=== PATIENT | male | born 1985 | race Caucasian/White ===

== ENCOUNTER 2024-12-09 01:20 | Emergency (ER) | payer SELFPAY ==
[2024-12-09 01:21] VITALS: BP 150/100; PULSE 78; RESP 18; TEMP 36.6; O2SAT 98; BMI 27.6
--- NOTE | 2024-12-09 02:01 | EX.ED.VIS.PS ---
HPI HPI - Psych History of Present Illness Chief Complaint: Suicidal Narrative Narrative: Patient is a 39-year-old male presenting to the emergency department for suicidal ideation. Patient states he is not on any current psychiatric meds. States he was drinking alcohol tonight and reports that he does not know how much he drank. States that he has had on and off thoughts of harming himself over the past years. States that tonight the thoughts got worse. He does have access to a gun at home and was thinking about using it. He does not have a specific plan to kill himself. He denies any other drugs tonight. Denies history of suicide attempts. Denies physical complaints. Denies homicidal ideation or plan, delusions or hallucinations. [facility]SH [facility] Medical History Suicidal ideation Depression Home Medications ?Medication ?Instructions ?Recorded ?Last Taken ?Type NK 12/09/24 Unknown History Allergy/AdvReac Type Severity Reaction Status Date / Time No Known Allergies Allergy Verified 12/09/24 01:20 Social History Smoking Status: Current every day smoker tobacco type: cigarettes ROS ROS ED ROS Narrative See HPI EXAM Physical Exam Narrative Exam Narrative: Vital signs: Reviewed General: Alert and oriented x 3. No acute distress HEENT: Head is normocephalic and atraumatic, sinuses nontender, pupils equal round and reactive. Nares are patent. Oropharynx and throat exams normal. Neck: Supple without lymphadenopathy nontender Cardiovascular: Regular rate and rhythm, no murmurs. No rubs or gallops. Normal S1 and S2 Respiratory: Clear to auscultation bilaterally. No wheezes, rales, rhonchi Abdominal: Soft and nontender. Normal bowel sounds. No guarding or rebound. Nonsurgical abdomen Extremities: No tenderness. No bruising. Normal range of motion. Normal sensation. Skin: No rash or redness. Neurological: Cranial nerves II through XII are grossly intact. Normal strength and sensation. Normal cerebellar function The rest of the physical exam is unremarkable Const Vital Signs: 12/09/24 01:21 Temperature 98 F Temperature Source Oral Pulse Rate 78 Respiratory Rate 18 Blood Pressure 150/100 H Blood Pressure Mean 116 Pulse Ox 98 Oxygen Delivery Method Room Air Psych mental status grossly normal, cooperative, speech normal, denies hallucinations and denies homicidal ideation; Negative for denies suicidal ideation Attitude: calm, No withdrawn, No uncooperative, No agitated and No aggressive Activity / Motor Behavior: appropriate eye contact Speech: normal speech Mood & Affect: flat affect Thought Process: normal thought process Thought Content: suicidality, No homicidality, No phobia(s), No delusion(s) and No hallucination(s) Attention / Concentration: attention grossly intact and concentration grossly intact Memory / Cognition: memory grossly intact MDM MDM MDM Narrative Medical decision making narrative: Patient is a 39-year-old male presenting to the emergency department for suicidal ideation. Patient was seen and examined. Vitals are stable. Patient resting bed comfortably no acute distress. Patient is suicidal and has access to firearms at home. Exacerbated by his alcohol intoxication. Will reevaluate once more clinically sober. Medical clearance labs ordered. Will consult crisis. Crisis evaluated patient. He is deny SI now. Clinically sober. He lives at home with his father. Sister crisis consulted father who will have the firearms removed from the home. Patient was safety plan. Set up with therapist outpatient. Patient feels comfortable going home. Now that he is sober he is now endorsing suicidal ideation. I recommended the patient abstain from alcohol use given it is a depressant. He is agreeable. Patient is stable for outpatient management. He was encouraged to return to the emergency department immediately with any new or worsening thoughts. Clinical impression Depression Alcohol intoxication History & Record Review Discussion w/independent historian: Patient Lab Data Attestation: I reviewed the patient's lab results. Labs: Laboratory Results - last 24 hr 12/09/24 12/09/24 12/09/24 01:30 01:55 04:05 WBC 8.3 RBC 6.20 Hgb 17.5 H Hct 52.2 MCV 84.2 MCH 28.2 MCHC 33.5 RDW Std Deviation 37.9 RDW Coeff of [place] 12.5 Plt Count 441 MPV 9.4 Immature Gran % (Auto) 1.400 H Neut % (Auto) 47.8 Lymph % (Auto) 38.3 [place] % (Auto) 7.7 Eos % (Auto) 3.6 Baso % (Auto) 1.2 H Absolute Neuts (auto) 4.0 Absolute Lymphs (auto) 3.19 Nucleated RBC % 0 Sodium 142 Potassium 3.8 Chloride 106 Carbon Dioxide 18.0 L Anion Gap 18 H BUN 7 Creatinine 0.81 Estim Creat Clear Calc 137.00 Est GFR (MDRD) Non-Af 114 BUN/Creatinine Ratio 8.3 L Glucose 124 H Calcium 9.3 Urine Opiates Screen NEGATIVE U Buprenorphine Qual NEGATIVE Ur Oxycodone Screen NEGATIVE Urine Methadone Screen NEGATIVE Urine Fentanyl Screen NEGATIVE Ur Barbiturates Screen NEGATIVE Ur Phencyclidine Scrn NEGATIVE Ur Amphetamines Screen NEGATIVE U Benzodiazepines Scrn NEGATIVE Urine Cocaine Screen NEGATIVE U Cannabinoids Screen NEGATIVE Ethyl Alcohol 138.0 H 90.9 H Discharge Plan Triage Chief Complaint: Suicidal ED Provider: Essence Womack Dx/Rx/DC Orders Clinical Impression: Alcohol intoxication, Depression Instructions: Depression: Tips to Help Yourself, ED Alcohol Intoxication Prescriptions: No Action NK Primary Care Provider: Care Physician,No Primary Referrals: Ángel Hobbs MD [Med Staff - Active Staff, Family Practice] - As soon as possible Care Physician,No Primary [Primary Care Provider, Medical] Activity Restrictions/Additional Instructions: Please follow the safety plan that was discussed with you here in the emergency department. Try to abstain from alcohol use as this can exacerbate depressive feelings. Follow-up with the therapist as soon as possible. Return to the emergency department with any new or worsening thoughts of harming yourself or anyone else or if you feel unsafe at home. Print Language: [place] Disposition Disposition: Home, Self Care
[2024-12-09 02:07] LABS: Hematocrit 52.2 % (40-54); Hemoglobin 17.5 g/dL (13.0-16.5); Immature Granulocytes Count 0.120 X10^3/uL (0.0-0.0); Mean Corp Hgb Conc 33.5 g/dL (32-36); Mean Corpuscular Volume 84.2 fL (80-94); Mean Platelet Vol. 9.4 fl (6.2-12.0); NRBC Flagged by Analyzer 0 % (0-5); Platelet Count 441 K/mm3 (150-450); RBC Distribution Width CV 12.5 % (11.6-14.6); RBC Distribution Width SD 37.9 fl (35.1-43.9); Red Blood Count 6.20 M/mm3 (4.6-6.2); White Blood Count 8.3 K/mm3 (4.4-11.0)
[2024-12-09 02:20] LABS: Anion Gap 18 (5-15); BUN 7 mg/dL (4-19); BUN/Creat Ratio 8.3 RATIO (10-20); Calcium,Total 9.3 mg/dL (7.6-11.0); Carbon Dioxide 18.0 mmol/L (21.0-32.0); Chloride 106 mmol/L (98-108); Estimated Creatinine Clearance 137.00 ml/min (50-250); Glucose 124 mg/dL (70-99); Potassium 3.8 mmol/L (3.3-5.1)
[2024-12-09 02:23] LABS: Alcohol, Blood (Medical)-Serum 138.0 mg/dL (<=10.0)
[2024-12-09 02:25] LABS: Barbiturate Urine NEGATIVE (< 200 ng/mL); Benzodiazepine Urine NEGATIVE (< 200 ng/mL); PCP Urine NEGATIVE (< 25 ng/mL); THC Urine NEGATIVE (< 50 ng/mL)
[2024-12-09 04:47] LABS: Alcohol, Blood (Medical)-Serum 90.9 mg/dL (<=10.0)
[2024-12-09 05:16] VITALS: BP 112/70; PULSE 81; RESP 18; TEMP 36.6; O2SAT 97
== END 2024-12-09 05:16 | disposition home or self-care (01) ==
PROVIDERS: Emergency Provider Student in an Organized Health Care Education/Training Program; Visit Provider Student in an Organized Health Care Education/Training Program
DX: R45.851 Suicidal ideations (principal); F10.129 Alcohol abuse with intoxication, unspecified; F32.A Depression, unspecified; F17.210 Nicotine dependence, cigarettes, uncomplicated
CPT/HCPCS: 80048; 80307; 82077; 85025; 99284